=== PATIENT | female | born 1940 ===

== ENCOUNTER 2017-06-28 13:13 | Emergency (ER) | payer MEDICARE ==
[2017-06-28 13:34] VITALS: BP 131/73
--- NOTE | 2017-06-28 13:49 | UC ---
Back Pain HPI - HPI Summary HPI Summary: left mid back pain x 1 week no known injury , no radiation of the pain, pain is achy , constant, no fever, no chill, no dysuria, no cough or sob - History of Current Complaint Chief Complaint: UCBackPain Stated Complaint: MID BACK PAIN Time Seen by Provider: 06/28/17 13:19 Hx Obtained From: Patient Onset/Duration: Gradual Onset, Lasting Weeks - 1, Still Present Timing: Constant Severity Initially: Moderate Severity Currently: Moderate Back Pain: Is Discrete @ - righ mid back pain Character: Aching Aggravating Factor(s): Movement Alleviating Factor(s): Position Associated Signs And Symptoms: Negative: Swelling, Redness, Bruising, Weakness, Numbness, Tingling, Abdominal Pain, Flank Pain, Bladder Incontinence, Bowel Incontinence, Weight Loss - Allergies/Home Medications Allergies/Adverse Reactions: Allergies Allergy/AdvReac Type Severity Reaction Status Date / Time Penicillins Allergy Unknown Unknown Verified 06/28/17 13:23 Reaction Details Home Medications: Home Medications Acetaminophen [Acetaminophen Extra Stren] 1,000 mg PO ONCE PRN 06/28/17 [ History Confirmed 06/28/17] Dabigatran CAP(NF) [Pradaxa CAP(NF)] 150 mg PO DAILY 06/28/17 [History Confirmed 06/28/17] Pravastatin (NF) [Pravachol (NF)] 10 mg PO DAILY 06/28/17 [History Confirmed 09/13] Stomach Medication BID 06/28/17 [History] Tremor Medication DAILY 06/28/17 [History] PMH/Surg Hx/FS Hx/Imm Hx Cardiovascular History: Cardiac Disease, Hypertension, Myocardial Infarction - Surgical History Surgical History: Yes Surgery Procedure, Year, and Place: Cataract surgery 2013, cyst removal to feet , trigger thumb release, appendectomy. Cardiac cath- 2 stents- . cardiac cath 2017 - Family History Known Family History: Negative: Diabetes - Social History Alcohol Use: None Substance Use Type: None Smoking Status (MU): Former Smoker Type: Cigarettes When Did the Patient Quit Smoking/Using Tobacco: 1998 Review of Systems Constitutional: Negative Skin: Negative Eyes: Negative ENT: Negative Respiratory: Negative Gastrointestinal: Negative Motor: Negative Neurovascular: Negative Is Patient Immunocompromised?: No All Other Systems Reviewed And Are Negative: Yes Physical Exam Triage Information Reviewed: Yes Appearance: Well-Appearing, No Pain Distress, Well-Nourished Vital Signs: Initial Vital Signs Temp 98.2 F 06/28/17 13:29 Pulse 62 06/28/17 13:29 Resp 18 06/28/17 13:29 BP 131/73 06/28/17 13:29 Vital Signs Reviewed: Yes Eye Exam: Normal Eyes: Positive: Conjunctiva Clear ENT: Positive: Normal ENT inspection, Hearing grossly normal, Pharynx normal Neck: Positive: Supple, Nontender, No Lymphadenopathy Respiratory: Positive: Chest non-tender, Lungs clear, Normal breath sounds Cardiovascular: Positive: RRR, No Murmur, Pulses Normal Abdominal Exam: Normal Abdomen Description: Positive: Nontender, Soft. Negative: CVA Tenderness (R), CVA Tenderness (L), Distended, Guarding Musculoskeletal: Positive: Other: - left mid back : no swelling, no rash , no erythema, no significant tenderness, Back Pain Course/Dx - Differential Dx/Diagnosis Provider Diagnoses: middle left back pain Discharge - Discharge Plan Condition: Stable Disposition: HOME Prescriptions: Lidocaine PATCH 5%* [Lidoderm 5% Patch*] 2 patch TRANSDERM Q12H #1 box Patient Education Materials: Back Pain (ED) Referrals: Marj Cristina MD [Primary Care Provider] - 5 Days Additional Instructions: cont. with Tylenol as needed for pain lidoderm patch every 12 hrs follow up with your pcp in 5 days
== END 2017-06-28 14:21 | disposition home or self-care (01) ==
LOC: UCCORT 13:13
DX: M54.6 Pain in thoracic spine (principal); I25.2 Old myocardial infarction; I10 Essential (primary) hypertension; Z95.5 Presence of coronary angioplasty implant and graft; Z98.49 Cataract extraction status, unspecified eye; Z88.0 Allergy status to penicillin; Z87.891 Personal history of nicotine dependence
CPT/HCPCS: 81003; 87086; 99212; G0463

== ENCOUNTER 2017-10-11 20:15 | Emergency (ER) | payer MEDICARE ==
[2017-10-11 20:52] VITALS: BP 174/82
[2017-10-11] MEDS ORDERED: Acetaminophen TAB* 325 MG PO ONE (21:07)
--- NOTE | 2017-10-11 21:37 | RAD ---
Indication: Left wrist injury 3 views of the left wrist demonstrates comminuted fracture distal radius with impaction and overriding of the fracture fragments. Intra-articular extension of the fracture line is noted. Additional fracture of the ulnar styloid process is noted. IMPRESSION: Comminuted fracture distal radius extending into the radiocarpal joint. There is also fracture of the ulnar styloid process.
--- NOTE | 2017-10-11 21:38 | RAD ---
Indication: Left ankle injury. 3 views left ankle demonstrates no fracture. No other bone or joint abnormality is identified. IMPRESSION: No fracture of the left ankle is noted.
--- NOTE | 2017-10-11 22:04 | UC ---
Minor Trauma HPI - HPI Summary HPI Summary: 76 yo female presents after missing a step at [employer] twisted left ankle and landed on left wrist and right knee - History of Current Complaint Chief Complaint: UCUpperExtremity Stated Complaint: L HAND/WRIST/ANKLE INJURY Time Seen by Provider: 10/11/17 21:02 Hx Obtained From: Patient Onset/Duration: Sudden Onset Onset Of Pain: Immediate Severity Currently: Severe Pain Intensity: 10 Pain Scale Used: 0-10 Numeric Mechanism Of Injury: Fall From A Standing Position Aggravating Factor(s): Movement, Weight Bearing Alleviating Factor(s): Rest Associated Signs And Symptoms: Positive: Swelling - Allergies/Home Medications Allergies/Adverse Reactions: Allergies Allergy/AdvReac Type Severity Reaction Status Date / Time MS Penicillins [Penicillins] Allergy Unknown Unknown Verified 10/11/17 20:37 Reaction Details Home Medications: Home Medications Calcium Carbonate [Calcium] 500 mg PO 10/11/17 [History] Cholecalciferol TAB* [Vitamin D TAB*] 1,000 unit PO DAILY 10/11/17 [History Confirmed 10/11/17] Dabigatran CAP(NF) [Pradaxa CAP(NF)] 150 mg PO DAILY 10/11/17 [History Confirmed 10/11/17] Flecainide TAB* [Tambocor TAB*] 100 mg PO DAILY 10/11/17 [History Confirmed ] Hydrochlorothiazide TAB* [Hydrodiuril TAB*] 12.5 mg PO DAILY 10/11/17 [History Confirmed 10/11/17] Magnesium Oxide [Magnesium] 250 mg PO 10/11/17 [History] Pravastatin (NF) [Pravachol (NF)] 40 mg PO DAILY 10/11/17 [History Confirmed ] Propranolol TAB* [Inderal TAB*] 80 mg PO DAILY 10/11/17 [History Confirmed 10/11] amLODIPine TAB* [Norvasc 5 mg TAB*] 10 mg PO DAILY 10/11/17 [History Confirmed 10/11/17] PMH/Surg Hx/FS Hx/Imm Hx Previously Healthy: Yes Cardiovascular History: Cardiac Disease, Hypertension - Surgical History Surgical History: Yes Surgery Procedure, Year, and Place: Cataract surgery 2013, cyst removal to feet , trigger thumb release, appendectomy. Cardiac cath- 2 stents- 99. cardiac cath 2017. [employer]VAL [employer]ABLE [employer] - Family History Known Family History: Negative: Diabetes - Social History Alcohol Use: None Substance Use Type: None Smoking Status (MU): Former Smoker Type: Cigarettes When Did the Patient Quit Smoking/Using Tobacco: 1998 Review of Systems Constitutional: Negative Skin: Bruising Eyes: Negative ENT: Negative Respiratory: Negative Cardiovascular: Negative Gastrointestinal: Negative Genitourinary: Negative Motor: Negative Neurovascular: Negative Musculoskeletal: Arthralgia Neurological: Negative Psychological: Negative Is Patient Immunocompromised?: No All Other Systems Reviewed And Are Negative: Yes Physical Exam Triage Information Reviewed: Yes Appearance: Well-Appearing, No Pain Distress, Well-Nourished Vital Signs: Initial Vital Signs Temp 97.5 F 10/11/17 20:45 Pulse 71 10/11/17 20:45 Resp 20 10/11/17 20:45 BP 174/82 10/11/17 20:45 Pulse Ox 98 10/11/17 20:45 Eyes: Positive: Conjunctiva Clear ENT: Positive: Hearing grossly normal, Uvula midline. Negative: Nasal congestion, Nasal drainage, Trismus, Muffled voice, Hoarse voice, Dental tenderness Neck: Positive: Supple, Nontender, No Lymphadenopathy Respiratory: Positive: Lungs clear, Normal breath sounds, No respiratory distress, No accessory muscle use Cardiovascular: Positive: RRR, No Murmur Musculoskeletal: Positive: Other: - see image Neurological: Positive: Alert Psychological Exam: Normal Skin Exam: Normal Procedures - Splinting Location: left wrist Hand-Made Type: orthoglass Splint: sugar-tong Pre-Proc Neuro Vasc Exam: normal Post-Proc Neuro Vasc Exam: normal Diagnostics - Radiology No standard instances Xray Interpretation: Positive (See Comments) - Comminuted fracture distal radius extending into the radiocarpal joint. There is also fracture of the ulnar styloid process. left ankle -no fx Radiology Interpretation Completed By: Radiologist Re-Evaluation - Re-Evaluation Second Eval Re-Evaluation Time: 22:33 Change: Improved - improved in splint Minor Trauma Course/Dx - Differential Dx/Diagnosis Provider Diagnoses: left wrist [id number] distal radius fractue involving articular surface- not displaced, also fracture ulnar styloid process. left ankle sprain. right knee contusion Discharge - Discharge Plan Condition: Stable Disposition: HOME Patient Education Materials: Ankle Sprain (ED), Wrist Fracture in Adults (ED), Contusion in Adults (ED) Referrals: Jonnie VINSON,Marj [Primary Care Provider] - Additional Instructions: Comminuted fracture distal radius extending into the radiocarpal joint. There is also fracture of the ulnar styloid process splint sling ice tylenol I suggest you call your orthopedist at [facility](Dr. Barroso) for follow up If unable to get seen the next day or two let us know take copies of xrays Images Front/Back of Body, Lg ([place]): 1 - ecchmosis/FROM/mild tenderness 2 - tender lat malleoulus 3 - tender/swollen distal left radius, n/v intact
== END 2017-10-11 22:52 | disposition home or self-care (01) ==
LOC: UCCORT 20:15
DX: S52.502A Unspecified fracture of the lower end of left radius, initial encounter for closed fracture (principal); S52.612A Displaced fracture of left ulna styloid process, initial encounter for closed fracture; W10.9XXA Fall (on) (from) unspecified stairs and steps, initial encounter; Y93.9 Activity, unspecified; Y92.22 Religious institution as the place of occurrence of the external cause; I51.9 Heart disease, unspecified; I10 Essential (primary) hypertension; Z87.891 Personal history of nicotine dependence
CPT/HCPCS: 99203; A9270-GY; G0463

== ENCOUNTER 2018-10-12 16:23 | Emergency (ER) | payer MEDICARE ==
[2018-10-12 16:59] VITALS: BP 157/76
--- NOTE | 2018-10-12 17:30 | UC ---
Respiratory Complaint HPI - HPI Summary HPI Summary: Patient is a 77-year-old female with 24-36 hour history of fever, chills, sore throat, congestion, cough, headache and myalgias. She has had no nausea vomiting or diarrhea. She denies any chest pain or shortness of breath - History of Current Complaint Chief Complaint: UCGeneralIllness Stated Complaint: SORE THROAT,COUGH Time Seen by Provider: 10/12/18 17:14 Hx Obtained From: Patient Onset/Duration: Sudden Onset, Lasting Hours Timing: Constant Severity Initially: Mild Severity Currently: Moderate Pain Intensity: 6 Pain Scale Used: 0-10 Numeric Character: Cough: Nonproductive Aggravating Factors: Nothing Alleviating Factors: Nothing Associated Signs And Symptoms: Positive: Fever, Chills, URI, Nasal Congestion, Hoarseness - Allergies/Home Medications Allergies/Adverse Reactions: Allergies Allergy/AdvReac Type Severity Reaction Status Date / Time Penicillins Allergy Unknown Verified 10/12/18 16:52 Reaction Details Home Medications: Home Medications Isosorbide Mononitrate [Isosorbide Mononitrate ER] 30 mg PO DAILY 10/12/18 [ History Confirmed 10/12/18] Pantoprazole Sodium [Protonix] 40 mg PO DAILY 10/12/18 [History Confirmed ] PMH/Surg Hx/FS Hx/Imm Hx Endocrine History: Dyslipidemia Cardiovascular History: Cardiac Disease, Hypertension - Surgical History Surgical History: Yes Surgery Procedure, Year, and Place: Cataract surgery 2013, cyst removal to feet , trigger thumb release, appendectomy. Cardiac cath- 2 stents- 99. cardiac cath 2017. [employer] COORDINATOR - Family History Known Family History: Positive: Hypertension Negative: Diabetes - Social History Alcohol Use: None Substance Use Type: None Smoking Status (MU): Former Smoker Type: Cigarettes When Did the Patient Quit Smoking/Using Tobacco: 1998 Review of Systems All Other Systems Reviewed And Are Negative: Yes Constitutional: Positive: Fever, Chills, Fatigue Skin: Positive: Negative Eyes: Positive: Negative ENT: Positive: Sore Throat, Nasal Discharge Respiratory: Positive: Cough Cardiovascular: Positive: Negative Gastrointestinal: Positive: Negative Genitourinary: Positive: Negative Motor: Positive: Negative Neurovascular: Positive: Negative Musculoskeletal: Positive: Myalgia Neurological: Positive: Headache Psychological: Positive: Negative Physical Exam Triage Information Reviewed: Yes Appearance: Well-Appearing, No Pain Distress, Well-Nourished Vital Signs: Initial Vital Signs Temp 100.0 F 10/12/18 16:49 Pulse 62 10/12/18 16:49 Resp 21 10/12/18 16:49 BP 157/76 10/12/18 16:49 Pulse Ox 99 10/12/18 16:49 Vital Signs Reviewed: Yes Eyes: Positive: Conjunctiva Clear ENT: Positive: Hearing grossly normal, Pharyngeal erythema, Nasal congestion, Nasal drainage, TMs normal, Uvula midline. Negative: Tonsillar swelling, Tonsillar exudate, Trismus, Muffled voice, Hoarse voice, Sinus tenderness Dental: Negative: Abscess @ Neck: Positive: Supple, Nontender, Enlarged Nodes @ - ant cerv Respiratory: Positive: Lungs clear, Normal breath sounds, No accessory muscle use, Respiratory distress Cardiovascular: Positive: RRR, No Murmur Musculoskeletal Exam: Normal Musculoskeletal: Positive: ROM Intact Neurological: Positive: Alert Psychological Exam: Normal Skin Exam: Normal UC Diagnostic Evaluation - Laboratory O2 Sat by Pulse Oximetry: 99 - normal/not hypoxic Diagnostic Studies Comment: influenza A +, strep - Respiratory Course/Dx - Differential Dx/Diagnosis Provider Diagnosis: Influenza A Discharge - Sign-Out/Discharge Documenting (check all that apply): Patient Departure All imaging exams completed and their final reports reviewed: No Studies - Discharge Plan Condition: Stable Disposition: HOME Prescriptions: Benzonatate CAP* [Tessalon CAP*] 100 - 200 mg PO TID PRN #28 cap PRN Reason: Cough Oseltamivir CAP* [Tamiflu CAP*] 75 mg PO BID #10 cap Patient Education Materials: Influenza (ED) Referrals: Marj Cristina MD [Primary Care Provider] - 4 Days Additional Instructions: rest fluids tylenol recheck next week - Billing Disposition and Condition Condition: STABLE Disposition: Home
[2018-10-12 17:38] LABS: Influenza A Molecular POSITIVE (Negative)
== END 2018-10-12 17:56 | disposition home or self-care (01) ==
LOC: UCCORT 16:23
DX: J10.1 Influenza due to other identified influenza virus with other respiratory manifestations (principal); I10 Essential (primary) hypertension; Z88.0 Allergy status to penicillin; Z87.891 Personal history of nicotine dependence
CPT/HCPCS: 87651; 99212; G0463